=== PATIENT | male | born 1995 | race Caucasian/White ===

== ENCOUNTER 2020-05-06 08:00 | Outpatient (CLI) | payer MEDICAID ==
[2020-05-06 18:53] LABS: ALBUMIN/GLOBULIN RATIO 1.8 (1.0-2.2); BILIRUBIN,TOTAL 0.7 mg/dL (0.2-1.0); CALCIUM 10.2 mg/dL (8.5-10.3); CREATININE 1.1 mg/dL (0.4-1.0); TOTAL PROTEIN 7.8 g/dL (6.7-8.2)
== END 2020-05-06 23:59 | disposition home or self-care (01) ==
LOC: LAB.WCP 08:00
DX: E34.9 Endocrine disorder, unspecified (principal)
CPT/HCPCS: 36415; 80053

== ENCOUNTER 2021-05-12 10:23 | Outpatient (CLI) | payer MEDICAID ==
--- NOTE | 2021-05-12 12:18 | XRAY Report ---
PROCEDURE: Abdomen 1 View X-Ray INDICATIONS: FOREIGN BODY OF ALIMENTARY TRACT TECHNIQUE: 1 view of the abdomen were acquired. COMPARISON: None. FINDINGS: Upper abdomen and diaphragms are not included in the [id number]. Surgical changes and devices: None. Bowel: No radiopaque foreign body visualized. No pneumoperitoneum. The bowel gas pattern is normal. There is a large amount of stool in colon. Soft tissues: No masses; visualized solid organ contours appear normal in size. No suspicious abdom inal calcifications. Bones: No suspicious bony abnormalities. IMPRESSION: 1. No radiopaque foreign body is identified in the [id number]. Upper abdomen and diaphragms are no t included on the exam. 2. A large amount of stool in colon. Reviewed by: Ramiro Deshpande MD on 05/12/2021 12:17 PM PST Approved by: Ramiro Deshpande MD on 05/12/2021 12:17 PM PST Station ID: [id number]
== END 2021-05-12 23:59 | disposition home or self-care (01) ==
LOC: DI.N 10:23
PROVIDERS: ATTEND Nurse Practitioner
DX: T18.9XXA Foreign body of alimentary tract, part unspecified, initial encounter (principal)

== ENCOUNTER 2021-06-08 08:00 | Outpatient (CLI) | payer MEDICAID ==
--- NOTE | 2021-06-08 15:48 | XRAY Report ---
PROCEDURE: Chest 2 View X-Ray INDICATIONS: CHEST PX TECHNIQUE: 2 view(s) of the chest. COMPARISON: None. FINDINGS: Surgical changes and devices: None. Lungs and pleura: No pleural effusions or pneumothorax. Lungs are clear. Mediastinum: Mediastinal contours are normal. Heart size is normal. Bones and chest wall: No suspicious bony abnormalities. Soft tissues appear unremarkable. IMPRESSION: No acute cardiopulmonary pathology. Reviewed by: Jenaro Rivera MD on 06/08/2021 3:46 PM PST Approved by: Jenaro Rivera MD on 06/08/2021 3:46 PM PST Station ID: [id number]
== END 2021-06-08 23:59 | disposition home or self-care (01) ==
LOC: DI.N 08:00
PROVIDERS: ATTEND Nurse Practitioner
DX: R07.9 Chest pain, unspecified (principal)

== ENCOUNTER 2021-06-17 08:00 | Outpatient (CLI) | payer MEDICAID | END 2021-06-17 23:59 | disposition home or self-care (01) | LOC: LAB.N 08:00 | PROVIDERS: ATTEND Physician Assistant Medical | DX: R07.9 Chest pain, unspecified (principal) | CPT/HCPCS: 36415; 85379 ==

== ENCOUNTER 2021-06-17 14:24 | Outpatient (CLI) | payer MEDICAID ==
--- NOTE | 2021-06-17 14:57 | XRAY Report ---
PROCEDURE: Chest 2 View X-Ray INDICATIONS: CHEST PX TECHNIQUE: 2 view(s) of the chest. COMPARISON: June 08, 2021 FINDINGS: SUPPORT DEVICES: None. LUNGS/PLEURA: No focal consolidation, pleural effusion or space-occupying pneumothorax. MEDIASTINUM: The cardiomediastinal silhouette is within normal limits. BONES/SOFT TISSUES: No acute abnormality. IMPRESSION: 1.No acute cardiopulmonary abnormality. Reviewed by: Morris Castillo MD on 06/17/2021 2:56 PM PST Approved by: Morris Castillo MD on 06/17/2021 2:56 PM [facility] Station ID: [id number]
== END 2021-06-17 14:25 | disposition home or self-care (01) ==
LOC: DI.N 14:24
PROVIDERS: ATTEND Physician Assistant Medical
DX: R07.9 Chest pain, unspecified (principal)

== ENCOUNTER 2021-06-17 18:55 | Emergency (ER) | payer MEDICAID ==
[2021-06-17] MEDS ORDERED: IOVERSOL 320 100 ML VIAL IVP ONE ×2 (19:49→21:13)
[2021-06-17 20:11] LABS: BASOPHILS # (AUTO) 0.1 10^3/uL (0.0-0.1); BASOPHILS % (AUTO) 0.6 %; EOSINOPHILS # (AUTO) 0.3 10^3/uL (0.0-0.7); EOSINOPHILS % (AUTO) 2.7 %; HCT - HEMATOCRIT 43.4 % (42.0-52.0); HGB - HEMOGLOBIN 14.6 g/dL (14.0-18.0); LYMPHOCYTES # (AUTO) 2.4 10^3/uL (1.5-3.5); LYMPHOCYTES % (AUTO) 22.7 %; MEAN CORPUSCULAR HEMOGLOBIN 29.4 pg (27.0-31.0); MEAN CORPUSCULAR HGB CONC 33.6 g/dL (32.0-36.0); MEAN CORPUSCULAR VOLUME 87.3 fL (80.0-94.0); MEAN PLATELET VOLUME 9.4 fL (7.4-11.4); MONOCYTES # (AUTO) 0.7 10^3/uL (0.0-1.0); MONOCYTES % (AUTO) 6.8 %; NEUTROPHILS # (AUTO) 6.9 10^3/uL (1.5-6.6); NEUTROPHILS % (AUTO) 66.8 %; PLT - PLATELET COUNT 255 10^3/uL (130-450); RED BLOOD COUNT 4.97 10^6/uL (4.70-6.10); RED CELL DISTRIBUTION WIDTH 12.1 % (12.0-15.0); WHITE BLOOD COUNT 10.4 x10^3/uL (4.8-10.8)
--- NOTE | 2021-06-17 20:19 | ED Physician Documentation ---
History of Present Illness - Stated complaint Stated Complaint: L ARM/CHEST PAIN - Chief complaint Chief Complaint: General - History obtained from History obtained from: Patient - History of Present Illness Timing: Today Pain level max: 0 Pain level now: 0 - Additonal information Additional information: Patient is a 25-year-old male who is currently transitioning to female. Goes by [facility]. Has been on estrogen therapy. Has developed intermittent left-sided chest pain. Intermittently over the past week or so. Last for a few minutes to a few hours at a time. No change with breathing. No recent travel or immobilization. No leg swelling. Was seen at the walk-in clinic earlier today and she was noted to have a elevated D-dimer so was sent here for rule out PE. Patient is currently asymptomatic. Review of Systems Ten Systems: 10 systems reviewed and negative Constitutional: denies: Fever, Chills Ears: denies: Ear pain Nose: denies: Rhinorrhea / runny nose, Congestion Throat: denies: Sore throat Cardiac: reports: Chest pain / pressure (Occasional, left upper chest. Described as pressure. Nonradiating. Nothing makes it better or worse). denies: Palpitations Respiratory: denies: Dyspnea, Cough, Wheezing GI: denies: Nausea, Vomiting, Diarrhea Skin: denies: Rash Musculoskeletal: denies: Neck pain, Back pain Neurologic: denies: Headache PD PAST MEDICAL HISTORY - Past Medical History Past Medical History: No - Past Surgical History Past Surgical History: No - Present Medications Home Medications: Ambulatory Orders Medication Instructions Recorded Confirmed Spironolactone [Aldactone] 100 mg PO BID 06/17/21 06/17/21 estradioL [Estradiol] 2 mg PO BID 06/17/21 06/17/21 - Allergies Allergies/Adverse Reactions: Allergies Allergy/AdvReac Type Severity Reaction Status Date / Time walnut Allergy Rash Verified 06/17/21 19:10 - Living Situation Living Situation: reports: With family Living Arrangement: reports: At home - Social History Does the pt smoke?: No Does the pt have substance abuse?: No - Family History Family history: reports: Non contributory PD ED PE NORMAL - Vitals Vital signs reviewed: Yes - General General: Alert and oriented X 3, No acute distress, Well developed/nourished - HEENT HEENT: Moist mucous membranes, Pharynx benign - Neck Neck: Supple, no meningeal sign - Cardiac Cardiac: RRR, No murmur, Strong equal pulses - Respiratory Respiratory: No respiratory distress, Clear bilaterally - Abdomen Abdomen: Soft, Non tender, Non distended - Derm Derm: Warm and dry, No rash - Extremities Extremities: No edema, No calf tenderness / cord - Neuro Neuro: Alert and oriented X 3 - Psych Psych: Normal mood, Normal affect Results - Vitals Vitals: Vital Signs - 24 hr 06/17/21 06/17/21 06/17/21 19:04 21:10 21:54 Temperature 36.1 C L Heart Rate 91 99 85 Respiratory 18 22 23 Rate Blood Pressure 135/90 H 132/85 H 119/78 O2 Saturation 98 100 100 06/17/21 23:04 Temperature Heart Rate 82 Respiratory 15 Rate Blood Pressure 107/70 O2 Saturation 99 Oxygen O2 Source Room air - EKG (time done) 1905 Rate: Rate (enter#) (97) Rhythm: NSR [place]: Normal Intervals: Normal OR QRS: Normal Ischemia: Normal ST segments - Labs Labs: Laboratory Tests 06/17/21 06/17/21 06/17/21 20:02 20:02 20:02 WBC 10.4 RBC 4.97 Hgb 14.6 Hct 43.4 MCV 87.3 MCH 29.4 MCHC 33.6 RDW 12.1 Plt Count 255 MPV 9.4 Neut # (Auto) 6.9 H Lymph # (Auto) 2.4 Bond # (Auto) 0.7 Eos # (Auto) 0.3 Baso # (Auto) 0.1 Absolute Nucleated RBC 0.00 Nucleated RBC % 0.0 Sodium 137 Potassium 4.0 Chloride 101 Carbon Dioxide 25 Anion Gap 11.0 BUN 11 Creatinine 1.0 Estimated GFR (MDRD) 90 Glucose 107 H Calcium 9.6 Total Bilirubin 0.2 AST 15 ALT 15 Alkaline Phosphatase 47 Troponin I High Sens 2.4 Total Protein 7.6 Albumin 4.4 Globulin 3.2 Albumin/Globulin Ratio 1.4 Lipase 31 - Rads (name of study) CT PA Radiology: Final report received, EMP read contemporaneously, See rad report PD MEDICAL DECISION MAKING - ED course Complexity details: reviewed results, re-evaluated patient, considered differential (No ST elevation [place], no aortic dissection, no PE, no tension pneumothorax, no aortic aneurysm), d/w patient ED course: Patient with atypical chest pain. CT pulmonary angiogram without any acute abnormalities. No PE. We will have her follow-up with her doctor for further care. Patient counseled regarding signs and symptoms for which I believe and urgent re-evaluation would be necessary. Patient with good understanding of and agreement to plan and is comfortable going home at this time This document was made in part using voice recognition software. While efforts are made to proofread this document, sound alike and grammatical errors may occur. Departure - Departure Disposition: 01 Home, Self Care Clinical Impression: Chest pain Qualifiers: Chest pain type: unspecified Qualified Code(s): R07.9 - Chest pain, unspecified Condition: Good Instructions: ED Chest Pain Atypical Unkn Cause Follow-Up: Dorie Mendez ARNP [Primary Care Provider] - Comments: The cause of your symptoms is unclear today. Your heart testing is normal as well as your CT pulmonary angiogram. Please follow-up with your doctor for further care. There is no evidence of blood clot in your lungs tonight. Return if you worsen Discharge Date/Time: 06/17/21 23:15
[2021-06-17 20:39] LABS: ALBUMIN 4.4 g/dL (3.2-5.5); ALBUMIN/GLOBULIN RATIO 1.4 (1.0-2.2); BILIRUBIN,TOTAL 0.2 mg/dL (0.2-1.0); CALCIUM 9.6 mg/dL (8.5-10.3); TOTAL PROTEIN 7.6 g/dL (6.7-8.2)
--- NOTE | 2021-06-17 22:43 | CT Report ---
PROCEDURE: ANGIO CHEST W/WO INDICATIONS: L chest pain, on estrogen, +d-dimer CONTRAST: IV CONTRAST: Optiray 320 ml: 80 PO CONTRAST: *NO PO CONTRAST TECHNIQUE: After the administration of intravenous contrast, 2 mm axial images were acquired from the pulmonary apices to the posterior costophrenic angles during the arterial phase. In addition, 1 mm lung kernel and 5 mm soft tissue kernel reconstructions were performed. 3-dimensional coronal oblique maximum int ensity projection (MIP) reformats, 8 mm axial MIP, and 5 mm coronal and sagittal MPR reformats were t hen performed through the thorax. For radiation dose reduction, the following was used: automated exp osure control, adjustment of mA and/or kV according to patient size. COMPARISON: Chest radiographs 06/17/2021 FINDINGS: Image quality: Excellent. Pulmonary arteries: Pulmonary arteries are normal in size, and demonstrate no intraluminal filling d efects to suggest central pulmonary embolism. Lungs and pleura: Lungs are clear. No pleural effusions or pneumothorax. Central and peripheral ai rways are patent. Mediastinum: Heart size is normal, without pericardial effusion. No mediastinal or hilar adenopathy . Thoracic aorta is normal in caliber and enhancement. Esophagus is normal in caliber, without hiat al hernia. Bones and chest wall: No suspicious bony lesions. Ribs and thoracic spine appear intact throughout. No axillary or supraclavicular adenopathy. The thyroid is normal in size. Abdomen: Visualized upper abdominal solid organs appear normal in the early arterial phase of enhanc ement. IMPRESSION: No acute pulmonary embolism. No acute abnormality is seen in the chest. Reviewed by: Arnol Waters MD on 06/17/2021 10:41 PM PST Approved by: Arnol Waters MD on 06/17/2021 10:41 PM PST Station ID: [id number]
[2021-06-17 23:05] VITALS: BP 107/70
== END 2021-06-17 23:15 | disposition home or self-care (01) ==
LOC: ED 18:55
DX: R07.9 Chest pain, unspecified (principal)
CPT/HCPCS: 36415; 71275; 80053; 83690; 84484; 85025; 85379; 93005; 99284; Q9967